=== PATIENT | male | born 1940 | race Caucasian/White ===

== ENCOUNTER 2018-12-30 15:31 | Inpatient (IN) ==
[2018-12-30] MEDS ORDERED: MORPHINE IV ONE ×2 (16:07→22:07)
[2018-12-30] MEDS ORDERED: ZOFRAN IV ONE (16:07)
[2018-12-30] MEDS ORDERED: PEPCID IV ONE (16:08)
[2018-12-30] MEDS ORDERED: NS 1,000 ML IV ONE (16:08)
[2018-12-30] MEDS ORDERED: SODIUM CHLORIDE 0.9% INJ ONE (16:08)
[2018-12-30 17:05] LABS: BASO# 0.02 X1000 (0.0-0.2); BASO% 0.2 % (0.0-0.8); EOS# 0.21 X1000 (0.0-0.7); EOS% 2.1 % (0.0-10.0); HEMATOCRIT 45.5 % (42.0-52.0); HEMOGLOBIN 15.3 g/dL (14.0-18.0); IMM GRAN# 0.02 X1000 (0.0-0.04); IMM GRAN% 0.2 % (0.0-0.5); LYMPH# 0.99 X1000 (1.2-3.4); LYMPH% 9.7 % (20.5-51.1); MCH 29.9 PG (27-31); MCHC 33.6 g/dL (33-37); MCV 88.9 FL (81-99); MONO# 0.74 X1000 (0.11-0.59); MONO% 7.2 % (1.7-9.3); MPV 10.2 FL (7.4-10.4); NEUT# 8.26 X1000 (1.4-6.5); NEUT% 80.6 % (42.2-75.2); PLT 217 X1000 (130-400); RBC 5.12 XMIL (4.7-6.1); RDW 15.4 % (11.5-14.5); WBC 10.24 X1000 (4.8-10.8)
[2018-12-30 17:30] LABS: AGAP 10; ALB/GLOB RATIO 1.7; ALBUMIN 4.9 g/dL (3.5-5.0); ALKALINE PHOSPHATASE 50 U/L (32-122); AMYLASE 33 U/L (20-200); BUN 13 mg/dL (8-22); CALCIUM 9.4 mg/dL (8.8-10.2); CHLORIDE 95 mmol/L (98-107); COSMO 263; CREATININE 0.7 mg/dL (0.7-1.2); ESTIMATED GFR > 60; GLUCOSE 137 mg/dL (70-104); GOT 21 U/L (10-34); GPT 20 U/L (10-44); LIPASE 23 U/L (13-60); SODIUM 130 mmol/L (136-145); TCO2 25 mmol/L (25-35); TOTAL BILIRUBIN 3.28 mg/dL (0.20-1.00); TOTAL PROTEIN 7.8 g/dL (6.3-8.3)
[2018-12-30] MEDS ORDERED: DILAUDID IV ONE ×2 (17:56→19:46)
--- NOTE | 2018-12-30 18:57 | PROVIDER DOCUMENTATION ---
This chart was entered by Antonia Hahn Scribe, acting as scribe for Demetri Aburto MD. HPI-Abdominal Pain/GI Problem - General Source: patient - History of Present Illness-ABD Nature of Presenting Problems: Patient is a 78 year old male who presents with generalized upper abdominal pain. States nausea with pain. Reports symptoms started at 0100 this morning. Denies vomiting and diarrhea. States he is on Warfarin. Abdominal Pain Onset Location: reports: other (generalized upper) Pain Radiation: reports: no radiation Quality of Pain: reports: aching Severity in ED: reports: mild Onset/Duration: reports: this morning (0100) Timing: reports: still present Activities at Onset: reports: light activity Associated Symptoms: reports: nausea. denies: diarrhea, fever/chills, vomiting Last BM: 24 hours ago Dark Stools Present?: reports: none noticed Rectal Bleeding: reports: none Rectal Pain: reports: none Emesis Description: reports: none Bruising or Bleeding Gums?: No Similar Symptoms Previously?: No Recently seen or treated by another doctor?: No <Demetri Aburto - Last Filed: 12/30/18 18:56> <Casimiro Warren - Last Filed: 12/30/18 20:44> - General Chief Complaint: Abdominal Pain Stated Complaint: UPPER ABD PAIN Time Seen by Provider: 12/30/18 16:04 Allergies/Adverse Reactions: Patient Allergies Allergy/AdvReac Type Severity Reaction Status Date / Time No Known Allergies Allergy Verified 12/30/18 17:00 Home Medications: Home Medication List Medication Instructions Recorded Confirmed Last Taken Type Amlodipine [Norvasc] 5 mg PO DAILY 12/09/13 12/30/18 12/30/18 History Dorzolamide 2% Oph Soln [Trusopt 1 drop BOTH EYES BID 12/09/13 12/30/18 12/30/18 History 2% Oph Soln] LISINOpril [Prinivil] 20 mg PO DAILY 12/09/13 09/21/15 12/30/18 History Metformin [Glucophage] 500 mg PO BID 12/09/13 09/21/15 12/30/18 History Omeprazole 40 mg PO DAILY 12/09/13 09/21/15 12/30/18 History Simvastatin 40 mg PO DAILY 12/09/13 09/21/15 12/30/18 History Warfarin [Coumadin] 5 mg PO DIRECTED 12/09/13 09/21/15 12/30/18 History Carvedilol [Coreg] 6.25 mg PO 09/21/15 09/21/15 12/30/18 History Lorazepam [Ativan] 0.5 mg PO BID PRN PRN #14 tablet 10/18/16 12/30/18 Rx Review of Systems - Adult - REVIEW OF SYSTEMS - ADULT ROS:: limited per condition Constitutional: reports: no symptoms reported. denies: chills, fever, fatique Eyes: reports: no symptoms reported Ears, Nose, Mouth & Throat: reports: no symptoms reported Cardiovascular: reports: no symptoms reported Respiratory: reports: no symptoms reported Gastrointestinal: reports: see HPI, abdominal pain (generalized upper), nausea. denies: diarrhea, vomiting Genitourinary: reports: no symptoms reported Musculoskeletal: reports: no symptoms reported Integumentary: reports: no symptoms reported Neurological: reports: no symptoms reported Psychiatric: reports: no symptoms reported Endocrine: reports: no symptoms reported Hematologic/Lymphatic: reports: no symptoms reported Allergic/Immunologic: reports: no symptoms reported All Other Systems: Reviewed and Negative <Demetri Aburto - Last Filed: 12/30/18 18:56> Past History - Adult - PAST MEDICAL HISTORY-ADULT Review of Records: reports: Old Records Reviewed, Nursing Assessment Review, Medications Reviewed, Social history reviewed & non-contributory. Major Childhood Illnesses: reports: denies history Cardiovascular: reports: A-Fib, CAD, HTN, hyperlipidemia Respiratory: reports: denies history Gastrointestinal: reports: denies history Obstetrical/Gynecological: reports: denies history Genitourinary: reports: denies history Musculoskeletal: reports: denies history Neurological: reports: denies history Endocrine/Immune: reports: anemia, Diabetes Other Conditions: reports: denies history - PRIOR SURGERIES/PROCEDURES Surgical/Procedure History: reports: colonoscopy, CABG, cholecystectomy, orthopedic (extremity) (total knee) - IMMUNIZATION STATUS Childhood Immunizations: See Nurse Assessment Flu Vaccine: See Nurse Assessment - FAMILY HISTORY Family History: reviewed, not pertinent - SOCIAL HISTORY Smoking: cigarettes (former) Substance Use: denies Living Situation: family <Demetri Aburto - Last Filed: 12/30/18 18:56> Physical Exam-General - PHYSICAL EXAM-ADULT Initial Vital Signs Reviewed: Yes - CONSTITUTIONAL General Appearance: alert, mild distress. negative: lethargic - RESPIRATORY Respiratory: chest non-tender, lungs clear, normal breath sounds. negative: rales, stridor - CARDIOVASCULAR Cardiovascular: normal peripheral pulses, regular rate, rhythm. negative: tachycardia, systolic murmur - GASTROINTESTINAL (ABDOMEN) Abdominal Exam: normal bowel sounds, distended, tenderness (diffuse). negative: rigid - MUSCULOSKELETAL Extremity: non-tender, normal inspection. negative: deformity, erythema, swelling - SKIN Integumentary: normal color, normal turgor, warm/dry. negative: diaphoresis, jaundice, rash - NEUROLOGIC Neurologic: grossly normal. negative: aphasia, facial droop - PSYCHIATRIC Psych/Mental Status: normal mood/affect, oriented x 3. negative: anxious <Demetri Aburto - Last Filed: 12/30/18 18:56> Progress - PLAN OF CARE/RESULTS Progress/Plan/Lab Results: Vital Signs - 8 hr 12/30/18 15:46 Temperature 97.2 F L Pulse Rate 83 Respiratory Rate 19 Blood Pressure 153/90 O2 Sat by Pulse Oximetry 95 Orders Category Date Time Status Saline Loc DIRECTED Care 12/30/18 15:50 Active NPO Diet 12/30/18 15:50 Active AMYLASE [CHEM] Stat Lab 12/30/18 15:50 Uncollected CBC WITH ELECTRONIC DIFF [HEME] Stat Lab 12/30/18 15:50 Uncollected COMPREHENSIVE METABOLIC PANEL [CHEM] Stat Lab 12/30/18 15:50 Uncollected LIPASE [CHEM] Stat Lab 12/30/18 15:50 Uncollected URINALYSIS W/POSS RFLX CULT [URINALYSIS] Stat Lab 12/30/18 15:50 Uncollected Result Diagrams: 12/30/18 16:23 12/30/18 16:23 - CHANGE OF SHIFT REPORT (ED Provider) 1 Report Given and Care Transferred to:: DR Hussein WARREN Time of Transfer: 18:57 <Demetri Aburto - Last Filed: 12/30/18 18:56> - PLAN OF CARE/RESULTS Progress/Plan/Lab Results: Vital Signs - 8 hr 12/30/18 15:46 12/30/18 18:01 12/30/18 18:02 Temperature 97.2 F L Pulse Rate 83 Respiratory Rate 19 Blood Pressure 153/90 166/86 O2 Sat by Pulse Oximetry 95 95 95 08/21/19 20:24 Temperature Pulse Rate 78 Respiratory Rate 16 Blood Pressure 141/83 O2 Sat by Pulse Oximetry 95 Laboratory Results - last 24 hr 12/30/18 12/30/18 12/30/18 16:23 16:23 19:07 WBC 10.24 RBC 5.12 Hgb 15.3 Hct 45.5 MCV 88.9 MCH 29.9 MCHC 33.6 RDW Std Deviation 15.4 H Plt Count 217 MPV 10.2 Immature Gran % (Auto) 0.2 Neut % (Auto) 80.6 H Lymph % (Auto) 9.7 L [place] % (Auto) 7.2 Eos % (Auto) 2.1 Baso % (Auto) 0.2 Immature Gran # (Auto) 0.02 Neut # (Auto) 8.26 H Lymph # (Auto) 0.99 L [place] # (Auto) 0.74 H Eos # (Auto) 0.21 Baso # (Auto) 0.02 Sodium 130 L Potassium 5.0 Chloride 95 L Carbon Dioxide 25 Anion Gap 10 BUN 13 Creatinine 0.7 Estimated GFR/1.73 m2 > 60 BUN/Creatinine Ratio 19 Glucose 137 H Calculated Osmolality 263 Calcium 9.4 Total Bilirubin 3.28 H AST 21 ALT 20 Alkaline Phosphatase 50 Total Protein 7.8 Albumin 4.9 Globulin 2.9 Albumin/Globulin Ratio 1.7 Amylase 33 Lipase 23 Urine Source CLEAN CATCH Urine Color YELLOW Urine Turbidity CLEAR Urine pH 6.0 Ur Specific [place] 1.027 Urine Protein 100 A Ur Glucose (Stick) NEGATIVE Ur Ketones (Stick) NEGATIVE Urine Blood SMALL A Urine Nitrite NEGATIVE Urine Bilirubin NEGATIVE Urobilinogen Dipstick NORMAL Urine Leukocytes NEGATIVE Urine WBC (Auto) <10 Urine RBC (Auto) 10-20 A U Epithel Cells (Auto) <10 Urine Bacteria (Auto) NEGATIVE Orders Category Date Time Status Saline Loc DIRECTED Care 12/30/18 15:50 Active NPO Diet 12/30/18 15:[address] ABD/PELVIS W/IV CONT ONLY [CT] Stat Exams 12/30/18 16:09 Completed AMYLASE [CHEM] Stat Lab 12/30/18 16:23 Completed CBC WITH ELECTRONIC DIFF [HEME] Stat Lab 12/30/18 16:23 Completed COMPREHENSIVE METABOLIC PANEL [CHEM] Stat Lab 12/30/18 16:23 Completed LIPASE [CHEM] Stat Lab 12/30/18 16:23 Completed PROTIME WITH INR [COAG] Routine Lab 12/31/18 06:00 Ordered URINALYSIS W/POSS RFLX CULT [URINALYSIS] Stat Lab 12/30/18 19:07 Completed 0.9% Sodium Chloride Inj [Ns] 1,000 ml Med 12/30/18 16:08 Active IV 125 mls/hr Famotidine [Pepcid] Med 12/30/18 16:08 Discontinued 20 mg IV NOW ONE Hydromorphone [Dilaudid] Med 12/30/18 17:56 Discontinued 0.5 mg IV NOW ONE Hydromorphone [Dilaudid] Med 12/30/18 19:46 Discontinued 1 mg IV NOW ONE Morphine Med 12/30/18 16:07 Discontinued 4 mg IV NOW ONE Ondansetron [Zofran] Med 12/30/18 16:07 Discontinued 4 mg IV NOW ONE Sodium Chloride 0.9% Med 12/30/18 16:08 Discontinued 5 - 10 ml INJ NOW ONE Pt signed out to me by Dr. Aburto, CT shows SBO, Spoke with Dr. Claire and he saw the patient in the ED and determined there is no surgical intervention at this time, spoke with Dr. Woodson and will admit to his service Result Diagrams: 12/30/18 16:23 12/30/18 16:23 <Casimiro Warren - Last Filed: 12/30/18 20:44> Departure <Demetri Aburto - Last Filed: 12/30/18 18:56> - Departure Date of Disposition Decision: 12/30/18 Time of Disposition Decision: 20:44 Certified Medical Emergency: Emergent - Critical Care Note This patient required my direct & personal management of CC.: No <Casimiro Warren - Last Filed: 12/30/18 20:44> - Departure DIAGNOSIS: SBO (small bowel obstruction) Disposition: ADMITTED INPATIENT 09 Condition: Stable Referrals and Follow-Ups: Dru Castellano MD [Primary Care Provider] - Attestation - Physician/ BALAJI Attestation The physician spent face to face time with patient:: Yes Advanced Practice Provider documentation review:: Supervising physician onsite and consulted in the evaluation and care of this patient. The physician did have a face to face encounter with the patient. <Demetri Aburto - Last Filed: 12/30/18 18:56> This chart was documented by the indicated scribe, (Antonia Hahn Scribe) and accurately reflects the services I performed and decisions made by , Demetri Aburto MD, as attested by the provider's signature.
--- NOTE | 2018-12-30 19:01 | Diag Imaging Result Doc PS360 ---
EXAM: CT ABD/PELVIS W/IV CONT ONLY INDICATION: ADB PAIN AND DISTENTION TECHNIQUE: This exam was performed using automated exposure control, adjustment of mA or kV according to patient size, and/or use of iterative reconstruction technique. COMPARISON: 02/14/2016 FINDINGS: There is mild subsegmental atelectasis at the lung bases. There is cardiomegaly. There has been a prior cholecystectomy. There is extrahepatic and mild intrahepatic biliary dilatation that is likely compensatory related to postcholecystectomy status. The liver is unremarkable, otherwise. There is a small volume of free fluid tracking around the spleen and layering in the pelvis. The spleen, pancreas, and adrenal glands are essentially unremarkable, otherwise. There are a couple of prominent nonobstructing intrarenal stones bilaterally. There is no hydronephrosis. There are several renal cortical cysts bilaterally. One is hyperdense at the lower pole of the left kidney that probably represents intrarenal blood products. It is essentially stable as compared to the previous study. The urinary bladder is unremarkable. There are multiple distended loops of small bowel throughout the abdomen containing gas and fluid. The distal small bowel is decompressed. This is suggestive of a high-grade small bowel obstruction. The transition point appears to be at the ventral right lower quadrant near the level of the umbilicus. There is mild bowel wall thickening in this region. There is feculent material in several of the distended loops of small bowel indicating slow bowel transit. There is extensive uncomplicated diverticulosis coli. There is no colonic distention. The remainder of the GI tract is essentially unremarkable. There is a stable large infrarenal abdominal aortic aneurysm with a stent graft repair. There is multilevel lumbar spondylosis. There is no evidence of acute osseous abnormality. IMPRESSION: 1.Multiple distended loops of small bowel with a transition point in the right lower quadrant suggesting a high-grade small bowel obstruction. 2.Small volume ascites tracking around the spleen and layering in the pelvis. 3.Other incidental/nonacute findings detailed above. Electronically signed by Frederic Salinas 12/30/2018 6:58 PM
[2018-12-30 19:16] LABS: URINE SOURCE CLEAN CATCH
[2018-12-30 19:31] LABS: BILIRUBIN URINE NEGATIVE (NEGATIVE); BLOOD URINE SMALL (NEGATIVE); COLOR YELLOW; GLUCOSE URINE NEGATIVE (NEGATIVE); KETONE URINE NEGATIVE (NEGATIVE); LEUKOCYTES URINE NEGATIVE (NEGATIVE); NITRITE URINE NEGATIVE (NEGATIVE); PROTEIN URINE 100 mg/dL (NEGATIVE); SP GRAVITY URINE 1.027; TURBIDITY URINE CLEAR (CLEAR); UROBILINOGEN URINE NORMAL (NORMAL)
[2018-12-30 19:32] LABS: UR EPITHELIAL CELLS <10 /HPF (<10); URINE BACTERIA NEGATIVE /HPF; URINE WBC <10 /HPF (<10)
[2018-12-30] MEDS ORDERED: DILAUDID IV PRN ×2 (20:42→23:17)
[2018-12-30] MEDS ORDERED: ZOFRAN IV PRN ×2 (20:42→23:17)
[2018-12-30] MEDS ORDERED: NS 1,000 ML IV SCH (20:45)
[2018-12-30 21:02] LABS: INR 1.68; PROTIME 20.1 Seconds (11.0-16.0)
--- NOTE | 2018-12-30 21:20 | CONSULTATION ---
DATE OF CONSULTATION: 12/30/2018 REASON FOR CONSULTATION: Small bowel obstruction. HISTORY OF PRESENT ILLNESS: This is a 78-year-old male who complains of mid abdominal pain that began last night with associated nausea, no vomiting. His last bowel movement was yesterday. His pain is not worsened with anything in particular. It is lessened with pain medicine in the ER. No fever or chills. He has had a 3 to 4 month history of progressively worsening diarrhea, and just started taking hyoscyamine about a week and a half ago. PAST MEDICAL HISTORY: 1. Coronary artery disease. 2. Abdominal aortic aneurysm. 3. Hypertension. 4. Hyperlipidemia. 5. Diabetes. 6. Atrial fibrillation. PAST SURGICAL HISTORY: 1. Open cholecystectomy. 2. Four-vessel coronary bypass. 3. Endovascular AAA repair. 4. Bilateral knee surgery. 5. Neck surgery. SOCIAL HISTORY: He is a former smoker. No alcohol use or illicit drug use. FAMILY HISTORY: Reviewed and noncontributory. HOME MEDICATIONS: 1. Norvasc. 2. Lisinopril. 3. Metformin. 4. Omeprazole. 5. Simvastatin. 6. Warfarin. 7. Carvedilol. 8. Lorazepam. ALLERGIES: No known drug allergies. REVIEW OF SYSTEMS: Ten systems reviewed and negative except as noted above. PHYSICAL EXAMINATION: Vital Signs: Temperature 97.2 degrees, pulse 78, respirations 16, blood pressure 141/83, O2 saturation 95%. General: This is an elderly male who looks his stated age, who appears uncomfortable, but nontoxic appearing. HEENT: Normocephalic, atraumatic. Extraocular muscles intact. Pupils equal, round, reactive to light. Sclerae anicteric. Mucous membranes moist. Neck: Supple. No thyromegaly. CV: Regular rate and rhythm. Respiratory: Bilateral equal breath sounds. No work of breathing. Gastrointestinal: Soft, distended. Dilated bowel is palpable under the skin. He is diffusely tender without rebound or guarding. Hypoactive bowel sounds. He has a well-healed right upper quadrant incision. No obvious hernias appreciated. No organomegaly or mass. Extremities: No clubbing, cyanosis, or edema. Skin: Warm and dry. No rash. Musculoskeletal: Moves all extremities equally and well. LABORATORY: CBC reviewed and unremarkable. Complete metabolic profile reviewed and notable for sodium of 130, chloride 95, total bilirubin 3.2. Urinalysis reviewed and unremarkable. IMAGING: An abdominal/pelvis CT scan reveals multiple distended loops of small bowel with a transition point in the right lower quadrant. Also, there is thickening of the distal small bowel and feculent material in several distended loops of small bowel. There is no free air. There is small volume ascites around the spleen and in the pelvis. ASSESSMENT AND PLAN: A 78-year-old male with small bowel obstruction. Etiology could be mechanical from prior surgery and adhesions, versus functional secondary to slowed transit due to recent intake of hyoscyamine. He will be admitted, carefully observed. Repeat physical examination, abdominal imaging, and labs in the morning. We will start a nasogastric tube to low wall suction tonight. I will follow closely along. If he fails to improve over the next 12 to 24 hours, then operative exploration is indicated, and we will need to correct his INR. cc: Andres Claire MD
[2018-12-30] MEDS ORDERED: LOVENOX SUBQ ONE (21:37)
--- NOTE | 2018-12-30 21:53 | Diag Imaging Result Doc PS360 ---
EXAM: CHEST-PORTABLE INDICATION: tube placement TECHNIQUE: One view COMPARISON: None. FINDINGS: There is a newly placed NG tube. The tip projects well below the diaphragm and is assumed to be in the lumen of the stomach in expected position. The lungs are overexposed due to focus on the NG tube. They appear to be approximately stable. There are distended loops of small bowel from a known small bowel obstruction seen on recent CT. IMPRESSION: NG tube in expected position as described. Electronically signed by Frederic Salinas 12/30/2018 9:51 PM
--- NOTE | 2018-12-30 22:11 | HISTORY AND PHYSICAL ---
REASON FOR ADMISSION: Today upper extremity and abdomen pain. HISTORY OF PRESENT ILLNESS: Mr. Salinas Wilcox is a 78-year-old male with past medical history of coronary artery disease, infrarenal aortic aneurysm repair, atrial fibrillation, type 2 diabetes, hypertension. Mr. Salinas Wilcox comes in today complaining of a two day history of upper extremity and abdominal pain which he describes as a knife slowly crossing from left to right of his upper abdominal area. He says this happened suddenly last night and his last bowel movement was 5 p.m. yesterday. He has had no flatus since then. He denies any vomiting, but has consistent nausea. He describes the aforementioned pain as progressing from the upper half slowly to the lower half over the course of the last 6 hours. He denies any fever or chills. No cardiorespiratory complaints. He states that the pain is not only constant, but has been getting progressively worse such that he has required a total of 1.5 mg of Dilaudid and 4 mg of morphine just to take the edge off. He was seen in the ER by Dr. Claire who feels that there is no surgical indication at this time to manage this patient. The patient will be admitted to our service for conservative management, with the hope that we can alleviate his symptoms. The patient denies any genitourinary or neurological complaints. He denies any dysphagia or weight loss. He denies any cardiorespiratory complaints, polyuria, or polydipsia. REVIEW OF SYSTEMS: 12 system review was done. Positive findings per HPI. ALLERGIES: None. HOME MEDICATIONS: Have been officially reconciled. SURGICAL HISTORY: Notable for CABG, cholecystectomy, bilateral knee surgery, infrarenal abdominal aortic aneurysm repair, C-spine surgery, low back spine surgery. FAMILY HISTORY: Lung cancer and type 2 diabetes in his parents. SOCIAL HISTORY: Does not smoke, drink, use illicit drugs. He is . Lives with . LABORATORY DATA: White count 10,000, hemoglobin and hematocrit 15 and 45, platelets 217,000, 80% neutrophils. Sodium is 130, BUN is 13, creatinine is 0.7, glucose 137,Total bilirubin is 3.7 which is up from 1,7. PT is 20, INR 1.7. Urinalysis shows 100 mg of protein, 10 to 20 RBCs. Abdominal/pelvic CT with IV contrast shows multiple distended loops of small bowel with transition point in the right lower quadrant area, suggesting a high-grade small-bowel obstruction, small volume ascites tracking around the spleen and area in the pelvis. The liver was notably unremarkable. PHYSICAL EXAMINATION: GENERAL: Pleasant, elderly, man who is alert, oriented to person, time, with normal mood and affect. VITAL SIGNS: Blood pressure is 141/83, heart rate 78, respirations 16, temperature is 97.2 degrees. He is 95% on room air. HEAD: Normocephalic, atraumatic. EYES: PERRL, EOMI. He is anicteric, not pale, nor any sign of cyanosis. NECK: Supple. No JVD or carotid bruit. No thyromegaly. CHEST: Clear to auscultation. Good air entry both lung gilman. CARDIOVASCULAR: First and second heart sounds are heard. No gallops, murmur, rubs. Rhythm is irregular. ABDOMEN: Slightly distended, soft, with tenderness confined to the epigastrium. No rebound or guarding. Bowel sounds are significantly hypoactive. RECTAL: Exam is deferred at this time. EXTREMITIES: He has 1+ pitting edema of both lower extremities. Distal pulses are intact and symmetrical. No clubbing. NEUROLOGICAL: No gross focal deficits. SKIN: Intact. No breakdown, lesions, erythema. MUSCULOSKELETAL: Exam is grossly normal. ASSESSMENT: 1. Small bowel obstruction. 2. Atrial fibrillation. 3. Coronary artery disease. 4. Hyperbilirubinemia. 5. Hypertension. PLAN: Patient will be, for now, observed, encouraged to ambulate. If he starts to vomit, will put nasogastric tube. For now, will treat him symptomatically, fluids, intravenous proton pump inhibitors for opioids. Check his electrolytes in the morning. Daily flat and upright x-rays to be done. Patient is usually followed by Dr. Cooper and he will consult and see the patient in the morning. The patient's antihypertensive medications and most especially the beta blockers will be initiated. His hyperbilirubinemia needs to be worked up further. There is no evidence on his CT scan of any obstruction, which leads me to believe that this might be questionably hemolytic. Direct bilirubin will be ordered to confirm or refute this. Patient on deep venous thrombosis prophylaxis with Lovenox, while possibly holding his Coumadin for now. Check PT/INR in the morning. Alternatively, we need to calculate patient's stroke risk versus his bleeding risk, and then make a final disposition, i.e. using the potential HAS-BLED score versus his DELMAR/VASC score, and determine which one would have the benefit of anticoagulating this patient, with heparin or Lovenox versus holding off this, because of potential bleeding risk and the need for surgery is worthwhile. cc: MD Dru Osman MD [facility]
[2018-12-30] MEDS ORDERED: SODIUM CHLORIDE 0.9% INJ SCH (23:17)
[2018-12-30] MEDS ORDERED: POTASSIUM CHLORIDE 10 MEQ in NS 1,000 ML IV SCH (23:17)
[2018-12-31 06:47] LABS: BASO# 0.03 X1000 (0.0-0.2); BASO% 0.3 % (0.0-0.8); EOS# 0.03 X1000 (0.0-0.7); EOS% 0.3 % (0.0-10.0); HEMATOCRIT 44.4 % (42.0-52.0); HEMOGLOBIN 14.9 g/dL (14.0-18.0); IMM GRAN# 0.02 X1000 (0.0-0.04); IMM GRAN% 0.2 % (0.0-0.5); LYMPH# 0.65 X1000 (1.2-3.4); LYMPH% 5.5 % (20.5-51.1); MCH 30.1 PG (27-31); MCHC 33.6 g/dL (33-37); MCV 89.7 FL (81-99); MONO# 1.24 X1000 (0.11-0.59); MONO% 10.5 % (1.7-9.3); MPV 10.4 FL (7.4-10.4); NEUT# 9.89 X1000 (1.4-6.5); NEUT% 83.2 % (42.2-75.2); PLT 213 X1000 (130-400); RBC 4.95 XMIL (4.7-6.1); RDW 15.5 % (11.5-14.5); WBC 11.86 X1000 (4.8-10.8)
[2018-12-31 06:50] LABS: INR 1.87; PROTIME 21.9 Seconds (11.0-16.0)
[2018-12-31 07:15] LABS: AGAP 14; BUN 20 mg/dL (8-22); CALCIUM 7.2 mg/dL (8.8-10.2); CHLORIDE 106 mmol/L (98-107); COSMO 290; CREATININE 0.5 mg/dL (0.7-1.2); ESTIMATED GFR > 60; GLUCOSE 179 mg/dL (70-104); POTASSIUM 4.5 mmol/L (3.5-5.1); SODIUM 142 mmol/L (136-145); TCO2 22 mmol/L (25-35)
--- NOTE | 2018-12-31 07:19 | Diag Imaging Result Doc PS360 ---
EXAM: ABDOMEN FLAT/UPRIGHT 12/31/2018 HISTORY: abdominal pain, sbo TECHNIQUE: Portable flat and upright abdomen at 0600 COMMENT: There is contrast in the urinary bladder. There is an aorto iliac stent graft. There is an NG tube with its tip in the left upper quadrant presumably in the stomach. There are some small bowel loops which are distended with gas particularly in the left upper quadrant. There is colonic gas particularly in the ascending and hepatic flexure regions. There is gas in the rectum. The stomach is not distended. There is no evidence of organomegaly or mass. IMPRESSION: Ileus versus partial small bowel obstruction. Electronically signed by Frantz Thompson 12/31/2018 7:17 AM
[2018-12-31 08:04] LABS: ALB/GLOB RATIO 2.1; ALBUMIN 3.9 g/dL (3.5-5.0); DIRECT BILIRUBIN 0.4 mg/dL (0.00-0.20); MAGNESIUM 1.3 mg/dL (1.5-2.7); TOTAL BILIRUBIN 3.3 mg/dL (0.20-1.00); TOTAL PROTEIN 5.8 g/dL (6.3-8.3)
[2018-12-31] MEDS ORDERED: LOVENOX SUBQ SCH (09:00)
[2018-12-31] MEDS ORDERED: MAGNESIUM SULFATE 2 GM/S.W.I. 2 GM/50 ML IVPB IV ONE (09:05)
[2018-12-31] MEDS ORDERED: SODIUM PHOSPHATE 30 MMOL in NS 250 ML IV ONE (09:05)
[2018-12-31] MEDS: PROTONIX IV SCH (09:13)
[2018-12-31] MEDS: TRUSOPT 2% OPH SOLN BOTH EYES SCH ×2 (09:13→22:00)
[2018-12-31] MEDS ORDERED: NEXIUM IV SCH (09:45)
[2018-12-31] MEDS ORDERED: SODIUM CHLORIDE 0.9% INJ SCH (09:45)
--- NOTE | 2018-12-31 09:48 | EKG Report ---
Test Performed on : 12/31/2018 09:18:28 AM Test Reason : afib Blood Pressure : / mmHG Vent. Rate : 096 BPM Atrial Rate : 066 BPM P-R Int : 000 ms QRS Dur : 078 ms QT Int : 354 ms P-R-T Axes : 000 -32 159 degrees QTc Int : 447 ms Atrial fibrillation. 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
[2018-12-31] MEDS: LOPRESSOR IV SCH ×3 (10:06→22:00)
[2018-12-31] MEDS: LOVENOX SUBQ SCH ×2 (10:06→22:00)
[2018-12-31] MEDS: MINERAL OIL NG SCH ×2 (10:07→22:00)
[2018-12-31] MEDS: CHLORASEPTIC SPRAY MT PRN (10:09)
[2018-12-31] MEDS: MILK OF MAGNESIA NG SCH ×2 (10:32→22:00)
--- NOTE | 2018-12-31 10:41 | PROGRESS NOTE ---
DATE: 12/31/2018 SUBJECTIVE: The patient is resting comfortably. He states that his stomach feels better. He denies having any nausea. He currently has an NG tube to low intermittent suction. OBJECTIVE: Vital Signs: Temperature 98 degrees, blood pressure 111/62, heart rate 101, respirations 18, O2 saturation 93% on room air. General: This is a chronically ill-appearing elderly male, lying in bed in no acute distress. Heart: S1, S2. Irregularly irregular rate and rhythm. Lungs: Equal air entry bilaterally. No wheezing. No rales. Abdomen: Positive bowel sounds. Soft, nontender, nondistended. Extremities: No edema, no cyanosis. Neurologic: The patient is alert and oriented x4. LABORATORY DATA: White blood cell count 11, hemoglobin 14, hematocrit 44, platelets 213,000. INR 1.8. Sodium 142, potassium 4.5, chloride 106, CO2 22, BUN 20, creatinine 0.5, glucose 179. Phosphorus 1.7, mag 1.3. Total bilirubin 3.3, AST 14, ALT 14. IMAGING: Abdominal x-ray shows an ileus versus partial small-bowel obstruction. ASSESSMENT AND PLAN: 1. Partial small-bowel obstruction. The patient reports that he has not had a bowel movement yet but states that he is not having as much pain. We will continue with NG tube decompression, n.p.o. status and IV fluid hydration. General Surgery has been consulted. 2. Atrial fibrillation. The patient is currently n.p.o. We will start IV Lopressor and full dose Lovenox until the patient is able to take oral medications. 3. Hypomagnesemia. We will start the patient on magnesium replacement. 4. Hypophosphatemia. We will replace the patient's phosphorus. 5. Hyperbilirubinemia. We will order an abdominal ultrasound to assess. We will also review the patient's medications. 6. Gastrointestinal prophylaxis. We will start the patient on IV Nexium. cc: Jasmin Timmons MD MTDD
--- NOTE | 2018-12-31 13:00 | Diag Imaging Result Doc PS360 ---
EXAM: CHEST-PORTABLE 12/31/2018 HISTORY: dyspnea TECHNIQUE: AP portable upright at 1246 COMMENT: The inspiration is much less optimal than on 10/18/2016. There is apparent atelectasis or pneumonia in both lung bases particularly the left lower lobe. IMPRESSION: Bibasilar atelectasis. Electronically signed by Frantz Thompson 12/31/2018 12:58 PM
[2018-12-31] MEDS: TYLENOL PO PRN ×2 (13:27→18:45)
--- NOTE | 2018-12-31 14:20 | GENERAL SURGERY PROGRESS NOTE ---
DATE: 12/31/2018 SUBJECTIVE: The patient feels better. He denies severe abdominal pain, but he is still hurting some. No nausea or vomiting. He has not passed gas or had a bowel movement yet. OBJECTIVE: Vitals: He is afebrile. Vital signs are stable, but he is noted to have some intermittent tachycardia up to 110. Urine output: He is voiding but the amount does not appear to be accurate, only 200 mL recorded. NG tube output 300. General: He is awake, alert, oriented x4. No acute distress. Respiratory: No work of breathing. Gastrointestinal: Soft, distended, mildly tender diffusely. No rebound or guarding. No organomegaly or mass. LABORATORY: White blood cell count 11.8, hemoglobin 14.9, INR 1.87. Electrolytes reviewed and notable for phosphorus 1.7, magnesium 1.3. IMAGING: His abdominal x-ray today shows some decrease in bowel dilation, but not completely normal. There is also gas seen scattered in the colon and into the rectum. ASSESSMENT AND PLAN: A 78-year-old male with partial small bowel obstruction versus bowel dysmotility and constipation. We will continue conservative management for now. I will add some mineral oil and milk of magnesia to the NG tube. We will re-examine him tomorrow and repeat abdominal x-rays. cc: Andres Claire MD
[2018-12-31] MEDS: D5 1/2 NS 1,000 ML IV SCH (15:27)
--- NOTE | 2018-12-31 16:33 | Diag Imaging Result Doc PS360 ---
CT THORAX W/O CONTRAST - 12/31/2018 INDICATION: pneumonia COMPARISON: Chest x-ray from earlier FINDINGS: There is a nasogastric tube in good position in the stomach. 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 Heart and great vessels are grossly normal otherwise. No mass or adenopathy. There are trace bilateral pleural effusions. There is some minimal atelectasis in both lower lobes. There is moderate COPD. There is some minimal nodularity or scarring in the lateral right upper lobe of doubtful significance. There is trace ascites in the upper abdomen. There are moderate degenerative changes of the spine. No acute or suspicious bony lesion. IMPRESSION: 1. Trace pleural effusions. Trace ascites. 2. Mild bibasilar linear atelectasis. 3. COPD. 4. Minimal scarring or nodularity of the lateral right upper lobe. Significance is doubtful. This exam was performed using automated exposure control, adjustment of mA or kV according to patient size, and/or use of iterative reconstruction technique Electronically signed by Kuldip Grant 12/31/2018 4:31 PM
--- NOTE | 2018-12-31 16:55 | Diag Imaging Result Doc PS360 ---
US ABDOMEN-COMPLETE - 12/31/2018 INDICATION: elevated lfts COMPARISON: CT from earlier today FINDINGS: There is trace ascites. There is a shadowing renal stone at the lower pole the left kidney measuring 1.5 cm. No hydronephrosis. There are bilateral renal cysts. These measure up to 2 cm on the right and 1.6 cm on the left. The spleen and is top normal in size. The spleen measures 12.6 x 4 cm. The gallbladder is absent. There is felt to be a stent in the abdominal aorta. Common bile duct and IVC are normal. The pancreas is obscured. The liver is grossly normal. IMPRESSION: 1. Small amount of ascites. 2. Nonobstructing left renal stone. Electronically signed by Kuldip Grant 12/31/2018 4:52 PM
[2019-01-01] MEDS: LOPRESSOR IV SCH ×3 (03:59→17:51)
[2019-01-01] MEDS: CHLORASEPTIC SPRAY MT PRN (04:07)
[2019-01-01] MEDS: D5 1/2 NS 1,000 ML IV SCH (05:47)
[2019-01-01 06:20] LABS: HEMATOCRIT 42.3 % (42.0-52.0); HEMOGLOBIN 13.9 g/dL (14.0-18.0); MCH 30.5 PG (27-31); MCHC 32.9 g/dL (33-37); MCV 92.8 FL (81-99); MPV 10.2 FL (7.4-10.4); RBC 4.56 XMIL (4.7-6.1); WBC 7.25 X1000 (4.8-10.8)
[2019-01-01 06:24] LABS: INR 1.83; PROTIME 21.6 Seconds (11.0-16.0)
[2019-01-01 06:28] LABS: ESTIMATED GFR > 60
[2019-01-01 06:40] LABS: AGAP 9; ALB/GLOB RATIO 1.3; ALBUMIN 3.6 g/dL (3.5-5.0); ALKALINE PHOSPHATASE 40 U/L (32-122); BUN 23 mg/dL (8-22); CALCIUM 7.9 mg/dL (8.8-10.2); CHLORIDE 104 mmol/L (98-107); COSMO 283; CREATININE 0.8 mg/dL (0.7-1.2); GLUCOSE 165 mg/dL (70-104); GOT 13 U/L (10-34); GPT 12 U/L (10-44); MAGNESIUM 2.6 mg/dL (1.5-2.7); SODIUM 138 mmol/L (136-145); TCO2 25 mmol/L (25-35); TOTAL BILIRUBIN 2.83 mg/dL (0.20-1.00); TOTAL PROTEIN 6.4 g/dL (6.3-8.3)
[2019-01-01] MEDS ORDERED: SODIUM PHOSPHATE IV ONE (06:52)
[2019-01-01] MEDS ORDERED: NS IV ONE (06:52)
--- NOTE | 2019-01-01 07:47 | Diag Imaging Result Doc PS360 ---
FLAT/UPRIGHT ABD/1 VIEW CHEST - 01/01/2019 INDICATION: sbo TECHNIQUE: COMPARISON: 12/31/2018 FINDINGS: Stable nasogastric tube in the stomach. Stable hazy infiltrate at the left lung base. The right basilar infiltrate or atelectasis has improved. Stable stents in the aorta and common iliac arteries. There are several abnormally gas-distended loops of small bowel in the central and left abdomen. These measure up to 4.4 cm. There is some colon gas mainly in the transverse colon. No free air. IMPRESSION: Partial small bowel obstruction. No significant change from prior. Electronically signed by Kuldip Grant 01/01/2019 7:44 AM
[2019-01-01] MEDS: MINERAL OIL NG SCH (10:27)
[2019-01-01] MEDS: MILK OF MAGNESIA NG SCH (10:28)
[2019-01-01] MEDS: PROTONIX IV SCH (10:28)
[2019-01-01] MEDS: TRUSOPT 2% OPH SOLN BOTH EYES SCH (10:28)
[2019-01-01] MEDS: LOVENOX SUBQ SCH (10:28)
--- NOTE | 2019-01-01 11:22 | GENERAL SURGERY PROGRESS NOTE ---
DATE: 01/01/2019 SUBJECTIVE: The patient is feeling better. His abdomen is sore, but no severe pain. No vomiting. He has had several bowel movements this morning. OBJECTIVE: Vitals: He is afebrile. Vital signs are stable. General: He is awake, alert, oriented x3. No acute distress. GI: Soft, nontender, moderately distended. He does have good bowel sounds. NG tube output only 200. LABORATORY: Reviewed and notable for a phosphorus of 1.0. ASSESSMENT AND PLAN: A 78-year-old male with small bowel obstruction. It appears to be improving. We will start a small bowel follow-through today and, if he passes this, will remove the NG tube and start him on a liquid diet. cc: Andres Claire MD
--- NOTE | 2019-01-01 11:46 | Diag Imaging Result Doc PS360 ---
EXAM: SMALL BOWEL SERIES ONLY 01/01/2019 HISTORY: sbo TECHNIQUE: 11 images, one minute 43 seconds fluoroscopy time, 2556.7 cGy. COMMENT: There is some dilatation of small bowel loops in the mid jejunum and ileum. There is no evidence of mucosal fold thickening in the proximal jejunum or duodenum. There is barium in the colon by two hours. There is no focal tenderness to palpation. There are fixed areas of narrowing in the distal ileum, probably corresponding to the segments seen immediately distal to the fecalized contents on the CT examination of 12/30/2018 the predicted around image 109 of the portal venous series. 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 Electronically signed by Frantz Thompson 01/01/2019 11:44 AM
--- NOTE | 2019-01-01 13:16 | PROGRESS NOTE ---
DATE: 01/01/2019 SUBJECTIVE: The patient is resting comfortably in bed. No acute events noted overnight. OBJECTIVE: Vital Signs: Temperature 98.3 degrees, blood pressure 136/64, heart rate 76 respirations 17, O2 saturation 96% on room air. General: This is a chronically ill-appearing elderly male lying in bed in no acute distress. Heart: S1, S2 normal. Irregularly irregular rhythm. Lungs: Clear to auscultation bilaterally. Abdomen: Positive bowel sounds. Soft, nontender, nondistended. Extremities: No edema, no cyanosis. Neurologic: The patient is alert and oriented x3. LABS: Sodium 138, potassium 4, chloride 104, CO2 25, BUN 23, creatinine 0.8, glucose 165, phosphorus 1, magnesium 2.6. Hemoglobin 13, hematocrit 42, platelets 205,000. Abdominal x-ray shows partial small bowel obstruction. ASSESSMENT AND PLAN: 1. Partial small bowel obstruction. Will continue with NG tube decompression. The patient is NPO. Continue with IV fluids. 2. Hypophosphatemia. We will replace the patient's phosphorus. 3. Chronic atrial fibrillation. Continue with IV Lopressor and full-dose Lovenox. 4. Hyperbilirubinemia. Improved. 5. Gastrointestinal prophylaxis. Continue on IV Nexium. cc: Jasmin Timmons MD MTDD
--- NOTE | 2019-01-01 15:58 | GENERAL SURGERY PROGRESS NOTE ---
DATE: 01/01/2019 SUBJECTIVE: The patient feels much better. He has had several bowel movements today. He denies significant abdominal pain. He says he has some soreness. No nausea, no vomiting. OBJECTIVE: He is afebrile. Vital signs are stable. NG tube residual was checked by me, and there was no significant residual. GI: Soft and nondistended. IMAGING: His small bowel follow-through revealed fairly quick passage of the contrast to the colon. A possible stricture of the terminal ileum was noted, although this could simply be some peristalsis. ASSESSMENT AND PLAN: A 78-year-old male with partial small bowel obstruction. Given his overall clinical improvement, we will remove the nasogastric tube and start him on a clear liquid diet. If he tolerates this, I would advance it to soft diet. If he tolerates that, I think he can be discharged home. However, if he has recurrent obstructive symptoms that we need to definitely consider a diagnostic laparoscopy or laparotomy for the possible stricture in the terminal ileum. cc: Andres Claire MD
[2019-01-01 17:15] VITALS: BP 143/80
--- NOTE | 2019-01-02 19:10 | DISCHARGE SUMMARY ---
ADMISSION DATE: 12/30/2018 DISCHARGE DATE: 01/01/2019 FINAL DISCHARGE DIAGNOSES: 1. Partial small bowel obstruction. 2. Hypophosphatemia. 3. Chronic atrial fibrillation. 4. Hyperbilirubinemia. 5. Hypertension. 6. Diabetes mellitus type 2. CONSULTATIONS: General Surgery consultation with Dr. Claire. IMAGIN. CT of the abdomen and pelvis which revealed multiple distended loops of small bowel throughout the abdomen. 2. Abdominal ultrasound which revealed a nonobstructing left renal stone. 3. Small bowel x-ray which revealed strictures in the distal ileum. HOSPITAL COURSE: Mr. Wilcox is a 78-year-old male with a history of chronic atrial fibrillation, hypertension, and diabetes who presented to the ER with a chief complaint of nausea, vomiting, and persistent abdominal pain. Upon arrival to the ER, CT of the abdomen and pelvis was done that revealed a small bowel obstruction. The patient was admitted to the hospitalist service and an NG tube was placed to low intermittent suction. General Surgery was consulted for further recommendations. The patient responded well to NG tube decompression and was able to start having bowel movements and his nausea and vomiting improved. He was started on a liquid diet which he tolerated without any difficulty. The patient had 3 bowel movements on the day of discharge. The patient was ultimately cleared for discharge home on 01/01/2019. DISCHARGE MEDICATIONS: 1. Simvastatin 40 mg oral daily. 2. Norvasc 5 mg oral daily. 3. Glucophage 500 mg oral twice a day. 4. Lisinopril 20 mg p.o. daily. 5. Warfarin 5 mg oral daily. 6. Coreg 6.25 mg oral twice a day. 7. Digoxin 125 mcg oral daily. 8. Aldactone 25 mg oral daily. 9. Levsin 0.125 mg oral q. 6 hours p.r.n. DISCHARGE DIET: GI soft diet. ACTIVITY: As tolerated. FOLLOW-UP INSTRUCTIONS: The patient will need to follow up with Dr. Claire as scheduled by his clinic. cc: Jasmin Timmons MD
== END 2019-01-01 20:30 | disposition home or self-care (01) | DRG 390 ==
LOC: ED 15:31 → SUATTDRO 15:32 → 3N 15:32
PROVIDERS: ATTEND Internal Medicine